=== PATIENT | male | born 1945 | race Hispanic/Latino ===

== ENCOUNTER 2022-09-11 14:31 | Emergency (ER) | payer MEDICARE, OTHER ==
[~2022-09-11] VITALS: Ht 172.7 cm; Wt 63.5 kg
[2022-09-11] MEDS ORDERED: AMOXICILLIN/CLAVULANATE K 875 MG TAB PO STA (18:16)
[2022-09-11] MEDS ORDERED: AMOX TR-K CLV1 EAC2 PO (18:17)
== END 2022-09-11 18:46 | disposition home or self-care (01) ==
LOC: ER 15:45
DX: S02.2XXA Fracture of nasal bones, initial encounter for closed fracture (principal); S02.831A Fracture of medial orbital wall, right side, initial encounter for closed fracture; W01.0XXA Fall on same level from slipping, tripping and stumbling without subsequent striking against object, initial encounter; Y93.01 Activity, walking, marching and hiking; Y92.89 Other specified places as the place of occurrence of the external cause; I10 Essential (primary) hypertension; E11.9 Type 2 diabetes mellitus without complications; E78.5 Hyperlipidemia, unspecified
CPT/HCPCS: 70450; 70486; 72125; 99283